=== PATIENT | female | born 1935 | race Caucasian/White ===

== ENCOUNTER → 2018-07-24 | Outpatient (CLI) | payer BC, OTHER ==
[~2018-07-24] MED LIST: ASPIR 8181 M1 PO; AUGMENTIN 875875 MG PO; BACTRIM DS TAB1 EACH PO; CARDIZEM; CARDIZEM CD240 MG PO; CENTRUM SILVER1 EAC5 PO; CIPROFLOXACIN500 M1 PO; CITRACAL + D M1 EACH PO; GARLIC1 EACH PO; HYDREA500 MG PO; JANUVIA25 MG PO; KRILL OIL 1,001 EAC1 PO; LISINOPRIL; LOSARTAN-HCTZ; LOSARTAN-HCTZ1 EACH PO; MECLIZINE 25 MG25 M1 PO; NEXIUM; NIASPAN; NORCO 5-325 TA1 EACH PO; OMEGA 3 1,0001 EACH PO; OMEPRAZOLE40 MG PO; PYRIDIUM200 MG PO; TUMS PO; VALIUM5 MG PO; VITAMIN D1000 UNI1 PO; VITAMIN D3400 UNI2 PO; ZOCOR; ZOCOR 10 MG TAB10 MG PO
== END ==
LOC: M.RAD 11:33
DX: J98.4 Other disorders of lung (principal); E78.00 Pure hypercholesterolemia, unspecified; M19.011 Primary osteoarthritis, right shoulder; M19.012 Primary osteoarthritis, left shoulder

== ENCOUNTER → 2018-08-23 | Outpatient (CLI) | payer BC | LOC: M.RAD 08-21 09:00 | DX: M85.89 Other specified disorders of bone density and structure, multiple sites (principal); M15.0 Primary generalized (osteo)arthritis ==

== ENCOUNTER 2019-02-20 09:20 | Emergency (ER) | payer BC ==
[~2019-02-20] VITALS: Ht 160 cm; Wt 72.6 kg
[2019-02-20 11:28] VITALS: BP 171/84
== END 2019-02-20 11:35 | disposition home or self-care (01) ==
LOC: M.ERS 09:20
DX: M79.662 Pain in left lower leg (principal); I10 Essential (primary) hypertension; E78.5 Hyperlipidemia, unspecified; K21.9 Gastro-esophageal reflux disease without esophagitis; M19.90 Unspecified osteoarthritis, unspecified site; E11.9 Type 2 diabetes mellitus without complications; Z96.653 Presence of artificial knee joint, bilateral; Z91.040 Latex allergy status; Z88.8 Allergy status to other drugs, medicaments and biological substances

== ENCOUNTER → 2019-05-21 | Outpatient (CLI) | payer BC ==
--- NOTE | 2019-05-21 11:27 | 2DMMODE ---
[place] [address] 2 D/M-MODE ECHOCARDIOGRAM Name: CASIMIRO VERAS Room: [facility]#: [id number] Admission: 05/21/19 Attend Phys: Eddie Moss DO Discharge: Date of : 33 Date of Service: 05/21/19 1127 Report #: [id number] THIS REPORT FOR: //name// ADDENDUM APPROVED REPORT Study performed: 05/21/2019 09:47:57 EXAM: Comprehensive 2D, Doppler, and color-flow Echocardiogram BSA: 1.74 HR: 72 bpm BP: 128/78 mmHg Other Information Study Quality: Good Indications Murmur Hypertension/HDD 2D Dimensions IVSd: 10.00 (7-11mm) LVOT Diam: 20.47 (18-24mm) LVDd: 39.98 mm PWd: 9.06 (7-11mm) Ascending Ao: 30.44 (22-36mm) LVDs: 27.77 (25-40mm) Aortic Root: 23.55 mm Volumes Left Atrial Volume (Systole) LA ESV Index: 17.20 mL/m2 Aortic Valve AoV Peak Mariano.: 1.09 m/s AO Peak Gr.: 4.73 mmHg LVOT Max P.34 mmHg AO Mean Gr.: 2.34 mmHg LVOT Mean P.77 mmHg LVOT Max V: 0.91 m/s AO V2 VTI: 21.90 cm LVOT Mean V: 0.62 m/s JAIRO (VTI): 2.94 cm2 LVOT V1 VTI: 19.59 cm Mitral Valve E/A Ratio: 0.43 MV Decel. Time: 254.85 ms MV E Max Mariano.: 0.49 m/s MV PHT: 73.91 ms MVA (PHT): 2.98 [place]2 [place] [address] 2 D/M-MODE ECHOCARDIOGRAM Name: CASIMIRO VERAS Room: [facility]#: [id number] Admission: 05/21/19 Attend Phys: Eddie Moss DO Discharge: Date of : 33 Date of Service: 05/21/19 1127 Report #: [id number] TDI E/Lateral E': 8.17 E/Medial E': 8.17 Medial E' Mariano.: 0.06 m/s Lateral E' Mariano.: 0.06 m/s Pulmonary Valve PV Peak Mariano.: 0.76 m/s PV Peak Gr.: 2.33 mmHg Tricuspid Valve RAP Estimate: 5.00 mmHg TR Peak Gr.: 22.95 mmHg RVSP: 27.95 mmHg PA Pressure: 27.95 mmHg Left Ventricle The left ventricle is normal size. There is normal LV segmental wall motion. There is normal left ventricular wall thickness. Left ventricular systolic function is normal. The left ventricular ejection fraction is within the normal range. LVEF is 55-60%. Grade I - abnormal relaxation pattern. Right Ventricle The right ventricle is normal size. The right ventricular systolic function is normal. Atria The left atrium size is normal. The right atrium size is normal. Aortic Valve The aortic valve is normal in structure. trace aortic regurgitation is present. There is no aortic valvular stenosis. Mitral Valve Mild mitral annular calcification. Mild mitral regurgitation. No evidence of mitral valve stenosis. Tricuspid Valve The tricuspid valve is normal in structure. Mild tricuspid regurgitation. estimated pa pressure 30 mm Hg Pulmonic Valve The pulmonary valve is normal in structure. There is no pulmonic valvular regurgitation[place] [address] 2 D/M-MODE ECHOCARDIOGRAM Name: CASIMIRO VERAS Room: [facility]#: [id number] Admission: 05/21/19 Attend Phys: Eddie Moss DO Discharge: Date of : 33 Date of Service: 05/21/19 1127 Report #: [id number] The aortic root is normal in size. IVC is not well visualized. Pericardium There is no pericardial effusion. <Conclusion> LVEF is 55-60%. Mild mitral regurgitation. <ELECTRONICALLY SIGNED> By: Trever Yan MD, FACC 10/14/19 1127 26 26 Trever Yan MD, FAC /INF
== END ==
LOC: M.CRD 09:02
DX: I08.1 Rheumatic disorders of both mitral and tricuspid valves (principal); R13.10 Dysphagia, unspecified; R05 Cough

== ENCOUNTER 2020-05-12 18:36 | Emergency (ER) | payer BC ==
[~2020-05-12] VITALS: Ht 160 cm; Wt 73.0 kg
[2020-05-12 19:47] LABS: HEMATOCRIT 40.6 % (37.0-47.0); HEMOGLOBIN 14.5 gm/dL (12.0-15.0); MCH 40.5 pg (26.0-34.0); MCHC 35.7 g/dL (28.0-37.0); MCV 113.6 fL (80.0-100.0); MPV 8.5 fl. (7.2-11.1); NUCLEATED RBCS 0 /100WBC; PLATELET COUNT* 179 thou/uL (150-400); RBC 3.57 mil/uL (4.20-5.00); RDW-CV 13.4 % (10.5-14.5); WBC 5.6 thou/uL (4.0-11.0)
[2020-05-12 19:57] LABS: CALCIUM 8.1 mg/dL (8.5-10.1); CREATININE 0.7 mg/dL (0.6-1.3); POTASSIUM 3.4 mmol/L (3.5-5.1)
[2020-05-12 19:59] LABS: APTT 23.6 Seconds (25.0-31.3); INR 1.1; PROTIME 11.2 Seconds (9.20-11.50)
[2020-05-12 20:08] LABS: ALBUMIN 3.3 g/dL (3.4-5.0); TOTAL BILIRUBIN 0.9 mg/dL (<0.1-1.0); TOTAL PROTEIN 5.8 g/dL (6.4-8.2)
[2020-05-12 20:29] LABS: ABSOLUTE EOSINOPHILS 0.1 thou/uL (0.0-0.7); ABSOLUTE LYMPHOCYTES 0.5 thou/uL (0.8-5.3); ABSOLUTE MONOCYTES 0.1 thou/uL (0.0-1.2)
[2020-05-12 20:30] LABS: PLATELET ESTIMATE ADEQUATE
[2020-05-12 20:31] LABS: LARGE PLATELETS RARE; MACROCYTES 2+
[2020-05-12 21:08] VITALS: BP 124/58
--- NOTE | 2020-05-13 09:37 | EKG ---
[place] [address] ELECTROCARDIOGRAM REPORT Name: CASIMIRO VERAS Room: [facility]#: [id number] Admission: 05/12/20 Attend Phys: Discharge: 05/12/20 Date of : 33 Date of Service: 05/12/201924 Report #: [id number] THIS REPORT FOR: //name// [facility] ED Test Date: 2020-05-12 Test Time: 19:25:30 Pat Name: CASIMIRO VERAS Department: Room: Gender: Production Editor: BRI : 1935 Requested By: Solitario Triana Order Number: [id number] MD: Trever Yan Measurements Intervals [place] Rate: 71 P: 23 HI: 178 QRS: -18 QRSD: 82 T: -4 QT: 432 QTc: 470 Interpretive Statements Sinus rhythm Atrial premature complexes Borderline left axis deviation Borderline T abnormalities, anterior leads Baseline wander in lead(s) V2 Compared to ECG 09/23/2016 11:20:06 Atrial premature complex(es) now present T-wave abnormality still present Electronically Signed On 05-13-2020 9:37:37 CDT by Trever Yan [email or web address] <ELECTRONICALLY SIGNED> By: Trever Yan MD, FACC 05/13/20 0937 24 24 Trever Yan MD, FACC /EPI
== END 2020-05-12 21:08 | disposition home or self-care (01) ==
LOC: M.ERS 18:36
PROVIDERS: Family Medicine
DX: R53.1 Weakness (principal); R42 Dizziness and giddiness; R79.1 Abnormal coagulation profile; E78.5 Hyperlipidemia, unspecified; K21.9 Gastro-esophageal reflux disease without esophagitis; E11.9 Type 2 diabetes mellitus without complications; Z79.899 Other long term (current) drug therapy; Z79.82 Long term (current) use of aspirin; Z91.040 Latex allergy status; Z90.49 Acquired absence of other specified parts of digestive tract

== ENCOUNTER 2021-07-27 13:40 | Emergency (ER) | payer BC ==
[~2021-07-27] VITALS: Ht 162.6 cm; Wt 63.5 kg
[2021-07-27 14:10] LABS: ABSOLUTE LYMPHOCYTES 0.7 thou/uL (0.8-5.3); ABSOLUTE MONOCYTES 0.4 thou/uL (0.0-1.2); ABSOLUTE NEUTROPHILS 5.9 thou/uL (1.6-8.1); BASOPHILS 0.4 %; EOSINOPHILS 0.2 %; HEMATOCRIT 38.3 % (37.0-47.0); HEMOGLOBIN 12.8 gm/dL (12.0-15.0); LYMPHOCYTES 10.2 %; MCH 35.6 pg (26.0-34.0); MCHC 33.3 g/dL (28.0-37.0); MCV 107.1 fL (80.0-100.0); MONOCYTES 5.6 %; MPV 9.1 fl. (7.2-11.1); NUCLEATED RBCS 0 /100WBC; PLATELET COUNT* 206 thou/uL (150-400); POLYS 83.6 %; RBC 3.58 mil/uL (4.20-5.00); RDW-CV 14.7 % (10.5-14.5); WBC 7.1 thou/uL (4.0-11.0)
[2021-07-27 14:19] LABS: CREATININE 0.7 mg/dL (0.6-1.3); POTASSIUM 3.1 mmol/L (3.5-5.1)
[2021-07-27 14:24] LABS: ALBUMIN 3.1 g/dL (3.4-5.0); TOTAL BILIRUBIN 0.6 mg/dL (<0.1-1.0)
--- NOTE | 2021-07-27 15:06 | EKG ---
[place] [address] ELECTROCARDIOGRAM REPORT Name: CASIMIRO VERAS Room: [facility].#: [id number] Admission: Attend Phys: Discharge: Date of : 33 Date of Service: 07/27/21 1347 Report #: [id number] THIS REPORT FOR: //name// [facility] ED Test Date: 2021-07-27 Test Time: 13:47:21 Pat Name: CASIMIRO VERAS Department: Room: Gender: F Threat Analyst: GAYLE : 1935 Requested By: Deven Causey Order Number: [id number] MD: Trever Yan Measurements Intervals [place] Rate: 66 P: 33 MT: 181 QRS: -9 QRSD: 88 T: 49 QT: 392 QTc: 411 Interpretive Statements Sinus rhythm Atrial premature complex Abnormal R-wave progression, early transition Borderline T abnormalities, anterior leads Compared to ECG 05/12/2020 19:25:30 ST (T wave) deviation now present T-wave abnormality still present Electronically Signed On 07-27-2021 15:06:43 PATIENT INTAKE COORDINATOR by Trever Yan [email or web address] <ELECTRONICALLY SIGNED> By: Trever Yan MD, FAC 07/27/21 1506 1347 1347 Trever Yan MD, [facility] /EPI
[2021-07-27 17:15] VITALS: BP 127/58
== END 2021-07-27 17:15 | disposition home or self-care (01) ==
LOC: M.ERS 13:40
PROVIDERS: Emergency Medicine Emergency Medical Services
DX: I95.1 Orthostatic hypotension (principal); I10 Essential (primary) hypertension; E78.5 Hyperlipidemia, unspecified; K21.9 Gastro-esophageal reflux disease without esophagitis; E11.9 Type 2 diabetes mellitus without complications; M19.90 Unspecified osteoarthritis, unspecified site; Z90.49 Acquired absence of other specified parts of digestive tract; Z96.653 Presence of artificial knee joint, bilateral; Z79.899 Other long term (current) drug therapy; Z79.82 Long term (current) use of aspirin; Z91.048 Other nonmedicinal substance allergy status; Z91.040 Latex allergy status

== ENCOUNTER → 2021-09-18 | Outpatient (CLI) | payer BC | LOC: M.WC 07:46 | PROVIDERS: ATTEND Family Medicine | DX: E11.622 Type 2 diabetes mellitus with other skin ulcer (principal); I87.311 Chronic venous hypertension (idiopathic) with ulcer of right lower extremity; L97.311 Non-pressure chronic ulcer of right ankle limited to breakdown of skin; E11.65 Type 2 diabetes mellitus with hyperglycemia; E78.5 Hyperlipidemia, unspecified; M19.90 Unspecified osteoarthritis, unspecified site; Z79.82 Long term (current) use of aspirin; Z90.49 Acquired absence of other specified parts of digestive tract; Z96.653 Presence of artificial knee joint, bilateral ==

== ENCOUNTER → 2021-09-29 | Outpatient (CLI) | payer BC ==
[~2021-09-29] MED LIST changes: +NORCO5 PO
== END ==
LOC: M.WC 09-24 08:00
PROVIDERS: ATTEND Surgery
DX: I87.311 Chronic venous hypertension (idiopathic) with ulcer of right lower extremity (principal); E11.622 Type 2 diabetes mellitus with other skin ulcer; L97.312 Non-pressure chronic ulcer of right ankle with fat layer exposed; E11.65 Type 2 diabetes mellitus with hyperglycemia; E78.5 Hyperlipidemia, unspecified; M19.90 Unspecified osteoarthritis, unspecified site; Z79.82 Long term (current) use of aspirin; Z79.899 Other long term (current) drug therapy

== ENCOUNTER → 2021-10-05 | Outpatient (CLI) | payer BC | LOC: M.WC 07:42 | PROVIDERS: ATTEND Surgery | DX: E11.622 Type 2 diabetes mellitus with other skin ulcer (principal); I87.311 Chronic venous hypertension (idiopathic) with ulcer of right lower extremity; L97.312 Non-pressure chronic ulcer of right ankle with fat layer exposed; E11.65 Type 2 diabetes mellitus with hyperglycemia; E78.5 Hyperlipidemia, unspecified; M19.90 Unspecified osteoarthritis, unspecified site; Z79.82 Long term (current) use of aspirin ==